=== PATIENT | male | born 1940 | race Caucasian/White ===

== ENCOUNTER 2019-10-23 23:29 | Emergency (ER) | payer OTHER ==
[~2019-10-23] VITALS: Ht 180.3 cm; Wt 85.3 kg
[2019-10-24] VITALS: BP_SYST 116
[2019-10-24] MEDS ORDERED: NACL 0.9% 1,000 ML IV ONE (01:06)
[2019-10-24] MEDS ORDERED: METOCLOPRAMIDE HCL 10 MG/2 ML VIAL IVP ONE (01:15)
[2019-10-24] MEDS ORDERED: DIPHENHYDRAMINE INJ 50 MG/ML VIAL IVP ONE (01:15)
[2019-10-24 02:08] LABS: HEMOGLOBIN 14.8 g/dL (14.0-18.0); PLATELET COUNT (AUTO) 173 K/uL (130-430)
[2019-10-24 02:22] LABS: BASOPHILS % (AUTO) 0.4 % (0.0-2.0); EOSINOPHILS # (AUTO) 0.1 K/uL (0.0-0.4); EOSINOPHILS % (AUTO) 0.5 % (0.0-4.0); HEMATOCRIT 44.7 % (36-54); LYMPHOCYTES # (AUTO) 1.4 K/uL (1.0-5.5); LYMPHOCYTES % (AUTO) 13.5 % (20.5-51.5); MEAN CORPUSCULAR HEMOGLOBIN 31 pg (27-31); MEAN CORPUSCULAR HGB CONC 33 % (32-36); MEAN CORPUSCULAR VOLUME 95 fL (79.0-98.0); MONOCYTES # (AUTO) 0.7 K/uL (0.0-1.0); MONOCYTES % (AUTO) 6.7 % (1.7-9.3); NEUTROPHILS % (AUTO) 78.9 % (40.0-70.0); RED BLOOD CELL COUNT(AUTO) 4.73 MIL/uL (4.2-6.2); WHITE BLOOD COUNT (AUTO) 10.2 K/uL (4.8-10.8)
[2019-10-24 02:26] LABS: INR 1.3 (0.80-1.20)
[2019-10-24 02:32] LABS: ANION GAP 8 (5-15); CALCIUM 8.5 mg/dL (8.4-11.0); CHLORIDE 107 mmol/L (98-107); CREATININE 0.74 mg/dL (0.55-1.30); GLUCOSE 188 mg/dL (70-99); POTASSIUM 3.7 mmol/L (3.5-5.1); SODIUM SERUM 141 mmol/L (136-145); UREA NITROGEN, BLOOD 11 mg/dL (8-21)
[2019-10-24 02:40] LABS: ALANINE AMINOTRANSFERASE 26 U/L (12-78); ALBUMIN 3.3 g/dL (3.4-4.8); ASPARTATE AMINOTRANSFERASE 17 U/L (10-37); TOTAL BILIRUBIN 0.9 mg/dL (0.0-1.0)
[2019-10-24 05:10] VITALS: BP_SYST 118
== END 2019-10-24 05:10 | disposition home or self-care (01) ==
LOC: SED 23:29
DX: R42 Dizziness and giddiness (principal); I10 Essential (primary) hypertension; E11.9 Type 2 diabetes mellitus without complications
CPT/HCPCS: 36415; 70450; 71045; 80053; 82962; 84484; 85025; 85610; 85730; 93005; 96361; 96374; 96375; 99285; J1200; J2765; J7030